=== PATIENT | male | born 1965 | race Caucasian/White ===

== ENCOUNTER 2017-04-24 19:06 | Emergency (ER) | payer OTHER ==
[~2017-04-24] VITALS: Ht 175.3 cm; Wt 72.2 kg
[2017-04-24] MEDS ORDERED: MOTRIN800 MG PO (20:38)
[2017-04-24 21:52] VITALS: BP 113/65
== END 2017-04-24 21:52 | disposition home or self-care (01) ==
LOC: EME 19:06
DX: S42.001A Fracture of unspecified part of right clavicle, initial encounter for closed fracture (principal); V86.59XA Driver of other special all-terrain or other off-road motor vehicle injured in nontraffic accident, initial encounter; Z87.891 Personal history of nicotine dependence; Z96.652 Presence of left artificial knee joint
CPT/HCPCS: 73000; 73030; 99281; 99284; J3010